=== PATIENT | male | born 1970 | race Caucasian/White ===

== ENCOUNTER 2016-12-27 12:35 | Emergency (ER) | payer MEDICARE, OTHER ==
[~2016-12-27 12:35] MED LIST: ASPIRIN325 MG PO; DULERA 100 MCG8.8 GM INH; FISH OIL300 MG PO; FLOMAX 0.4 MG0.4 MG PO; FLONASE 0.05% N16 GM; K-DUR TAB 20 M20 MEQ PO; LASIX20 MG PO; METFORMIN HCL1000 M1 PO; NEURONTIN 400400 MG PO; NEURONTIN600 MG PO; OMEPRAZOLE40 MG PO; RANEXA500 MG PO; TOPROL XL 100100 MG PO
== END 2016-12-27 16:42 | disposition home or self-care (01) ==
LOC: ER1 12:35
DX: N45.1 Epididymitis (principal); E11.9 Type 2 diabetes mellitus without complications; I10 Essential (primary) hypertension; Z79.84 Long term (current) use of oral hypoglycemic drugs; Z79.899 Other long term (current) drug therapy
CPT/HCPCS: 76870; 81001; 96372; 99284; J0696; J1885

== ENCOUNTER 2020-12-14 18:32 | Observation (INO) | payer MEDICARE, OTHER ==
[~2020-12-14] VITALS: Ht 177.8 cm; Wt 111.1 kg
[~2020-12-14 18:32] MED LIST changes: +ADULT LOW DOSE81 MG PO; +AMITIZA 24 MCG24 MCG PO; +ANORO ELLIPTA1 EACH INH; -ASPIRIN325 MG PO; +ATORVASTATIN CA40 MG PO; +BRILINTA90 MG PO; +CLARITIN 10MG T10 MG PO; +HYDROCHLOROTHIA25 MG PO; +IMDUR ER TAB 3030 MG PO; +LO-DOSE ASPIRIN81 MG PO; +LODINE CAP 300300 MG PO; -METFORMIN HCL1000 M1 PO; +METFORMIN HCL500 M2 PO; +METOPROLOL SUC100 MG PO; +MONTELUKAST SOD10 MG PO; +NITROGLYCERIN0.4 MG SL; +NORCO 5-325 TA1 EACH PO; +PREDNISONE 50 M50 MG PO; +SUBUTEX 8 MG TAB8 MG PO; +VENTOLIN HFA 66.7 GM INH; +VIBRAMYCIN 100100 MG PO; +XARELTO 10 MG T10 MG PO; +XARELTO10 MG PO; +ZOFRAN ODT 4 MG4 MG SL; +ZYLOPRIM 300 M300 MG PO
[2020-12-14 19:43] LABS: HEMOGLOBIN 15.3 gm/dl (14.0-17.5); RED BLOOD COUNT 5.2 M/UL (4.20-5.50); WHITE BLOOD COUNT 11.1 K/UL (4.5-11.0)
[2020-12-14 20:01] LABS: BUN/CREATININE RATIO 14 (0-10)
[2020-12-15 04:00] LABS: HEMOGLOBIN 14.1 gm/dl (14.0-17.5); RED BLOOD COUNT 4.94 M/UL (4.20-5.50); WHITE BLOOD COUNT 10.3 K/UL (4.5-11.0)
[2020-12-15 04:26] LABS: BUN/CREATININE RATIO 14 (0-10)
[2020-12-15] MEDS ORDERED: RANEXA500 MG PO (13:11)
== END 2020-12-15 16:40 | disposition home or self-care (01) ==
LOC: ER1 18:32 → CDU 20:42 → MED SURG 4 20:42
PROVIDERS: Emergency Medicine; ADMIT Internal Medicine
DX: I25.119 Atherosclerotic heart disease of native coronary artery with unspecified angina pectoris (principal); I10 Essential (primary) hypertension; E78.5 Hyperlipidemia, unspecified; E11.9 Type 2 diabetes mellitus without complications; I25.2 Old myocardial infarction; I49.5 Sick sinus syndrome; Z87.891 Personal history of nicotine dependence; Z95.5 Presence of coronary angioplasty implant and graft; Z79.02 Long term (current) use of antithrombotics/antiplatelets; Z79.899 Other long term (current) drug therapy; Z20.822 Contact with and (suspected) exposure to COVID-19
CPT/HCPCS: 36415; 71045; 80048; 80053; 82550; 82553; 82962; 83036; 83690; 83735; 83874; 83880; 84100; 84484; 85025; 85610; 85730; 93005; 94664; 94760; 99285; G0378; J7030; U0002

== ENCOUNTER 2021-09-08 13:37 | Emergency (ER) | payer MEDICARE | END 2021-09-08 15:45 | disposition left against medical advice (07) | LOC: ER1 13:37 | DX: Z53.21 Procedure and treatment not carried out due to patient leaving prior to being seen by health care provider (principal) ==

== ENCOUNTER 2021-12-25 18:15 | Observation (INO) | payer MEDICARE, OTHER ==
[~2021-12-25] VITALS: Ht 177.8 cm; Wt 110.0 kg
[~2021-12-25 18:15] MED LIST changes: -LASIX20 MG PO; +LASIX40 MG PO; -METOPROLOL SUC100 MG PO; +METOPROLOL TAR100 MG PO
[2021-12-25 18:48] LABS: HEMOGLOBIN 13.2 gm/dl (14.0-17.5); RED BLOOD COUNT 4.56 M/UL (4.20-5.50); WHITE BLOOD COUNT 8.5 K/UL (4.5-11.0)
[2021-12-25 19:07] LABS: BUN/CREATININE RATIO 19 (0-10)
[2021-12-26 04:37] LABS: HEMOGLOBIN 13.5 gm/dl (14.0-17.5); RED BLOOD COUNT 4.72 M/UL (4.20-5.50); WHITE BLOOD COUNT 7.5 K/UL (4.5-11.0)
[2021-12-26 04:52] LABS: BUN/CREATININE RATIO 16 (0-10)
[2021-12-26] MEDS ORDERED: NORVASC10 MG PO (10:47)
[2021-12-26] MEDS ORDERED: ALBUTEROL2.5 MG/3 M INH (10:47)
[2021-12-26] MEDS ORDERED: COLCHICINE0.6 MG PO (10:48)
[2021-12-26] MEDS ORDERED: LINZESS290 MCG PO (10:51)
[2021-12-26] MEDS ORDERED: WIXELA 100-501 EACH INH (10:51)
[2021-12-26] MEDS ORDERED: ISOSORBIDE MONO30 MG PO ×2 (10:51→14:15)
[2021-12-26] MEDS ORDERED: LUBIPROSTONE24 MCG PO (10:51)
[2021-12-26] MEDS ORDERED: CETIRIZINE HCL10 MG PO (10:52)
[2021-12-26] MEDS ORDERED: XARELTO2.5 MG PO (10:52)
[2021-12-26] MEDS ORDERED: METFORMIN HCL500 MG PO (10:52)
[2021-12-26] MEDS ORDERED: VITAMIN D21250 MCG PO (10:53)
[2021-12-26] MEDS ORDERED: RANEXA500 MG PO ×2 (12:23→13:50)
[2021-12-26] MEDS ORDERED: METOPROLOL SUCC50 MG PO ×2 (12:23→13:59)
[2021-12-26] MEDS ORDERED: BUDESONIDE0.5 MG/2 M INH (13:39)
--- NOTE | 2021-12-26 13:42 | NUR ---
12/26/21 1340 ROOM AIR SAT 98% NO RESPIRATORY DISTRESS NOTED
== END 2021-12-26 15:05 | disposition home or self-care (01) ==
LOC: ER1 18:15 → M/S 20:46 → CDU 20:46 → M/S 21:53
PROVIDERS: Physician Assistant; ADMIT Internal Medicine
DX: R07.89 Other chest pain (principal); J96.01 Acute respiratory failure with hypoxia; I11.0 Hypertensive heart disease with heart failure; I50.33 Acute on chronic diastolic (congestive) heart failure; I25.10 Atherosclerotic heart disease of native coronary artery without angina pectoris; I25.2 Old myocardial infarction; R73.03 Prediabetes; I49.5 Sick sinus syndrome; E78.5 Hyperlipidemia, unspecified; M10.9 Gout, unspecified; I08.1 Rheumatic disorders of both mitral and tricuspid valves; Z95.1 Presence of aortocoronary bypass graft; Z95.0 Presence of cardiac pacemaker; Z95.5 Presence of coronary angioplasty implant and graft; Z86.718 Personal history of other venous thrombosis and embolism; Z98.890 Other specified postprocedural states; Z87.891 Personal history of nicotine dependence; Z79.01 Long term (current) use of anticoagulants; Z79.84 Long term (current) use of oral hypoglycemic drugs; Z79.899 Other long term (current) drug therapy
CPT/HCPCS: ECHO; 36415; 36600; 71045; 80053; 82550; 82553; 82803; 83036; 83735; 83880; 84439; 84443; 84484; 85025; 85379; 85610; 85730; 93005; 93306; 94664; 94760; 96374; 99285; G0378; J1940

== ENCOUNTER 2022-03-08 14:24 | Observation (INO) | payer MEDICARE, OTHER ==
[~2022-03-08] VITALS: Ht 177.8 cm; Wt 124.7 kg
[~2022-03-08 14:24] MED LIST changes: +ALBUTEROL2.5 MG/3 M INH; +BUDESONIDE0.5 MG/2 M INH; +CETIRIZINE HCL10 MG PO; +COLCHICINE0.6 MG PO; +ISOSORBIDE MONO30 MG PO; +LINZESS290 MCG PO; +LUBIPROSTONE24 MCG PO; +METFORMIN HCL500 MG PO; +METOPROLOL SUCC50 MG PO; -NEURONTIN 400400 MG PO; +NEURONTIN800 MG PO; +NORVASC10 MG PO; +VITAMIN D21250 MCG PO; +WIXELA 100-501 EACH INH; +XARELTO2.5 MG PO
[2022-03-08 14:51] LABS: HEMOGLOBIN 14.1 gm/dl (14.0-17.5); RED BLOOD COUNT 4.8 M/UL (4.20-5.50); WHITE BLOOD COUNT 10.7 K/UL (4.5-11.0)
[2022-03-08 15:18] LABS: BUN/CREATININE RATIO 14 (0-10)
[2022-03-08] MEDS ORDERED: ISOSORBIDE MONO60 MG PO (17:16)
[2022-03-08] MEDS ORDERED: LOPRESSOR100 MG PO (17:17)
[2022-03-08] MEDS ORDERED: XARELTO10 MG PO (17:17)
[2022-03-09 03:50] LABS: HEMOGLOBIN 13.3 gm/dl (14.0-17.5); RED BLOOD COUNT 4.53 M/UL (4.20-5.50); WHITE BLOOD COUNT 9.8 K/UL (4.5-11.0)
[2022-03-09 04:16] LABS: BUN/CREATININE RATIO 16 (0-10)
[2022-03-09] MEDS ORDERED: BUMETANIDE1 MG PO (17:26)
[2022-03-09] MEDS ORDERED: RANEXA500 MG PO (17:26)
[2022-03-09] MEDS ORDERED: KLOR-CON M2020 MEQ PO (17:26)
[2022-03-09] MEDS ORDERED: ASPIRIN EC81 MG PO (17:26)
== END 2022-03-09 18:13 | disposition home or self-care (01) ==
LOC: ER1 14:24 → CDU 16:45 → MED SURG 4 03-09 08:16
PROVIDERS: Emergency Medicine; Internal Medicine; Physician Assistant Medical; ADMIT Internal Medicine
DX: I25.118 Atherosclerotic heart disease of native coronary artery with other forms of angina pectoris (principal); I49.5 Sick sinus syndrome; I11.0 Hypertensive heart disease with heart failure; I50.9 Heart failure, unspecified; E78.5 Hyperlipidemia, unspecified; E11.9 Type 2 diabetes mellitus without complications; E66.9 Obesity, unspecified; Z68.39 Body mass index [BMI] 39.0-39.9, adult; Z95.5 Presence of coronary angioplasty implant and graft; Z95.1 Presence of aortocoronary bypass graft; Z95.0 Presence of cardiac pacemaker; Z87.891 Personal history of nicotine dependence; Z79.01 Long term (current) use of anticoagulants; Z79.84 Long term (current) use of oral hypoglycemic drugs; Z79.899 Other long term (current) drug therapy
CPT/HCPCS: ECHO; 71045; 80053; 80307; 82550; 82553; 83690; 83880; 84484; 85025; 85027; 85379; 93005; 93306; 96374; 96375; 99285; G0378; J1940